=== PATIENT | male | born 1975 | race Caucasian/White ===

== ENCOUNTER → 2016-07-13 | Outpatient (CLI) | payer MEDICAID ==
[~2016-07-13] MED LIST: Bupivacaine 0.25% 10 ML SDV INJECT ONE; Sodium Chloride 0.9% 10 ML SDV SCH; methylPREDNISolone Acetate 40 MG/ML SDV EPIDUR ONE
--- NOTE | 2016-07-13 22:48 | PROC ---
PROVIDER: Brittney Baires CRNA GENERAL ASSESSMENT: A very pleasant 41-year-old male here today rating his pain on admission 5/10. He does not have any alteration in his gait noted prior to the injection. Informed consent was obtained. PROCEDURE: Epidural steroid injection. REFERRING PROVIDER: Dr. Hannah Ghosh. REFERRAL DIAGNOSES: Low back pain with radiculopathy involving his left lower extremity and hip area. MRI results are included with the previous dictation, he does have a bulging herniation noted at L3-4, and you can see the previous injection for more specific notation on that. HISTORY: This patient has had back pain for quite a while. Today, he has had several successful epidurals and done very well with reducing his overall lumbar back pain as well as his radicular pain. PROCEDURE: His back was prepped and draped in a sterile fashion utilizing ChloraPrep. I did identify L3-4. The patient was sitting at the edge of the bed with his feet elevated on a stool. I did use 3 mL of 1% lidocaine for skin infiltration. Following that, I did use a 17-gauge Tuohy needle, I did have to introduce the needle x2. I did get blood on the first attempt. The needle was redirected with a sterile 17-gauge needle. On the second attempt, I did get loss of resistance without any difficulty. Following that, I did inject 40 mg of Depo-Medrol, 3 mL the 0.25% lidocaine, and 4 mL of preservative-free normal saline. The patient did tolerate the procedure without any difficulty at all. The patient is currently having no pain. He is able to lift his legs with no alteration in his strength of either extremities. I did discuss with the patient no heavy lifting, bending, twisting, or turning today; to ice his back only, no heat; to call the hospital with any questions or concerns at all in regard to the injection. I will follow up with this patient in one week to see how he is doing, and continue to manage him as needed for future epidural steroid injections. /[id number]/MODL
== END ==
LOC: KA.PAINCL 12:25
PROVIDERS: ATTEND Nurse Anesthetist, Certified Registered
DX: M51.16 Intervertebral disc disorders with radiculopathy, lumbar region (principal)
CPT/HCPCS: 62322; J1030

== ENCOUNTER 2016-07-18 13:05 | Emergency (ER) | payer MEDICAID ==
[2016-07-18 13:18] VITALS: BP 112/76
[2016-07-18] MEDS ORDERED: Ketorolac 60 MG/2 ML SDV IM ONE (14:08)
[2016-07-18] MEDS ORDERED: LORazepam 2 MG/ML MDV IM ONE (14:08)
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
[2016-07-18] MEDS ORDERED: Acetaminophen/HYDROcodone 325-10 MG Tab PO PRN (14:09)
== END 2016-07-18 14:25 | disposition home or self-care (01) ==
LOC: KA.ED 13:05
DX: M54.5 Low back pain (principal); G89.29 Other chronic pain; J45.909 Unspecified asthma, uncomplicated; F17.210 Nicotine dependence, cigarettes, uncomplicated; Z88.0 Allergy status to penicillin; Z91.011 Allergy to milk products; Z91.030 Bee allergy status
CPT/HCPCS: 96372; 99283; A9270; J1885; J2060